=== PATIENT | male | born 1985 | race Caucasian/White ===

== ENCOUNTER 2021-03-25 08:14 | Emergency (ER) | payer OTHER, SELFPAY ==
[2021-03-25 08:33] VITALS: BP 133/97; PULSE 70; RESP 16; TEMP 36.9; O2SAT 99
--- NOTE | 2021-03-25 08:35 | ED.GENADULT ---
HPI - General Adult General Chief complaint: Upper Respiratory Infection Stated complaint: COUGH HEADACHE Source: patient Mode of arrival: ambulatory Limitations: no limitations History of Present Illness HPI narrative: Michael is a 35M with a PMH of tobacco abuse and COVID last month that presented to the ED with a runny nose, cough and headache. He has had these symptoms for 3 weeks. No fevers, chills, CP or SOB reported. Related Data Allergies Allergy/AdvReac Type Severity Reaction Status Date / Time No Known Allergies Allergy Verified 03/25/21 08:32 Review of Systems Constitutional: Constitutional: Reports no additional constitutional complaints Eyes: Eyes: Reports no additional eye complaints ENT: Reports as per HPI Cardiovascular: Cardiovascular: Reports no additional cardiovascular complaints Respiratory: Respiratory: Reports as per HPI Gastrointestinal: Gastrointestinal: Reports no additional gastrointestinal complaints Genitourinary: Genitourinary: Reports no additional male genitourinary complaints Musculoskeletal: Musculoskeletal: Reports no additional musculoskeletal complaints Integumentary/Breasts: Skin/Breast: Reports system reviewed and no additional complaints, except as docu Neurologic: Reports system reviewed and no additional complaints, except as documented Psychiatric: Psychiatric: Reports no additional psychiatric complaints Endocrine: Endocrine: Reports no additional endocrine complaints Hematologic/Lymphatic: Hematologic/Lymphatic: Reports no additional hematologic/lymphatic complaints Allergic/Immunologic: Allergic/Immunologic: Reports no additional allergic/immunologic complaints Exam Const: General: no acute distress and alert Orientation/consciousness: patient oriented x3 Limitations: No altered mental status HENMT: Head: normal to inspection Other: erythematous nasal turbinates, posterior oropharynx cobblestoning Eyes: Conjunctivae: conjunctivae normal Pupils: Equal, round and reactive pupils present Neck: Neck: normal visual inspection Chest: Chest palpation & inspection: normal inspection of the chest Resp: Effort & Inspection: normal respiratory effort Other: diffuse wheezing but good air movement Cardio: Rate: regular rate Rhythm: regular rhythm Urinary Catheter: Urinary Catheter: patent and draining Skin: General skin exam: normal color Rashes: no rashes Neuro: General: patient oriented x3 and moves all extremities Extrem: General: normal to inspection Psych: Appearance: grossly normal Mental Status: mental status grossly normal Thought content: Yes Normal thought content present Course Vital Signs Vital signs: Vital Signs Temperature 98.4 F 03/25/21 08:33 Pulse Rate 70 03/25/21 08:33 Respiratory Rate 16 03/25/21 08:33 Blood Pressure 133/97 H 10/27/21 08:33 Pulse Oximetry 99 03/25/21 08:33 Temperature 98.4 F 03/25/21 08:33 Pulse Rate 70 03/25/21 08:33 Respiratory Rate 16 03/25/21 08:33 Blood Pressure 133/97 H 03/25/21 08:33 Pulse Oximetry 99 03/25/21 08:33 Medical Decision Making Vital Signs Vital Signs: Vital Signs Temperature 98.4 F 03/25/21 08:33 Pulse Rate 70 03/25/21 08:33 Respiratory Rate 16 03/25/21 08:33 Blood Pressure 133/97 H 03/25/21 08:33 Pulse Oximetry 99 03/25/21 08:33 Temperature 98.4 F 03/25/21 08:33 Pulse Rate 70 03/25/21 08:33 Respiratory Rate 16 03/25/21 08:33 Blood Pressure 133/97 H 03/25/21 08:33 Pulse Oximetry 99 03/25/21 08:33 Discharge Plan Discharge Clinical Impression: Bronchitis, Allergies Patient Disposition: Home, Self-Care Condition: Stable Instructions: Acute Bronchitis (ED) Additional Instructions: Please return to the ED for any new concerning, or worsening symptoms. Prescriptions: New albuterol sulfate 90 mcg/actuation HFA aerosol inhaler 1 inh inhalation QID PRN (Reason: shortness of breath or wheezing
== END 2021-03-25 08:44 | disposition home or self-care (01) ==
PROVIDERS: Emergency Provider Family Medicine; PCP Internal Medicine
DX: J40 Bronchitis, not specified as acute or chronic (principal); T78.40XA Allergy, unspecified, initial encounter
CPT/HCPCS: 99283; 99284

== ENCOUNTER 2022-03-04 17:05 | Emergency (ER) | payer OTHER, SELFPAY ==
[2022-03-04 17:22] VITALS: BP 127/90; PULSE 74; RESP 16; TEMP 36.3; O2SAT 98
--- NOTE | 2022-03-04 17:48 | ED.GENADULT ---
HPI - General Adult General Chief complaint: Unspecified Stated complaint: Hemmoroid possible burst,fever,headaches Time Seen by Provider: 03/04/22 17:08 Source: patient Mode of arrival: ambulatory Limitations: no limitations History of Present Illness HPI narrative: this is a 36-year-old gentleman that presents with some bleeding from the rectum yesterday currently there is o bleeding, with no bleeding currently patient with no history of hemorrhoid. No other symptoms no fever chills no abdominal pain no rectal pain no history of anal fissures. Onset (ago): day(s) Location: buttocks ( rectal area) Severity: mild Severity scale (1-10): 1 Related Data Allergies Allergy/AdvReac Type Severity Reaction Status Date / Time No Known Allergies Allergy Verified 03/04/22 17:26 Review of Systems Review of Systems: All systems reviewed & are unremarkable except as noted in HPI and below PMFSH Past Medical History Medical History Patient denies medical problems Exam Const: General: cooperative, healthy appearing, comfortable, no acute distress and well developed HENMT: Head: normal to inspection Ears: hearing grossly normal bilaterally Face/Nose/Sinus: Normal external nose present Face and sinus: normal facial exam Mouth: Yes Normal oral and palatal mucosa present Eyes: General: appearance normal, both eyes and all related structures Periorbital: periorbital findings normal Eyelids: eyelids normal Conjunctivae: conjunctivae normal Sclera: sclerae normal EOM: EOMs intact bilaterally Neck: Neck: normal visual inspection, full ROM, no lymphadenopathy and no meningeal signs Chest: Chest palpation & inspection: normal inspection of the chest Resp: Effort & Inspection: normal respiratory effort and able to speak in complete sentences Cardio: Palpation: normal PMI Rate: regular rate Rhythm: regular rhythm GI: Inspection: normal to inspection Auscultation: normal bowel sounds Other: rectal exam performed shows that there was an internal hemorrhoid currently not bleeding flattened not sclerosed the 3 o'clock position. Back/Spine/Pelvis: Back: no CVA tenderness Skin: General skin exam: normal color and no rashes or lesions noted Neuro: General: oriented to person and oriented to place Extrem: General: normal to inspection and full ROM Psych: Appearance: grossly normal Mental Status: mental status grossly normal Course Course Emergency Course: Rectal exam performed which showed an internal hemorrhoid at approximately 3:00 a.m. position not bleeding currently. Vital Signs Vital signs: Vital Signs Temperature 36.3 C L 03/04/22 17:22 Pulse Rate 74 03/04/22 17:22 Respiratory Rate 16 03/04/22 17:22 Blood Pressure 127/90 03/04/22 17:22 Pulse Oximetry 98 03/04/22 17:22 Oxygen Delivery Room Air 03/04/22 17:22 Temperature 36.3 C L 03/04/22 17:22 Pulse Rate 74 03/04/22 17:22 Respiratory Rate 16 03/04/22 17:22 Blood Pressure 127/90 03/04/22 17:22 Pulse Oximetry 98 03/04/22 17:22 Oxygen Delivery Room Air 03/04/22 17:22 Medical Decision Making Vital Signs Vital Signs: Vital Signs Temperature 36.3 C L 03/04/22 17:22 Pulse Rate 74 03/04/22 17:22 Respiratory Rate 16 03/04/22 17:22 Blood Pressure 127/90 03/04/22 17:22 Pulse Oximetry 98 03/04/22 17:22 Oxygen Delivery Room Air 03/04/22 17:22 Temperature 36.3 C L 03/04/22 17:22 Pulse Rate 74 03/04/22 17:22 Respiratory Rate 16 03/04/22 17:22 Blood Pressure 127/90 03/04/22 17:22 Pulse Oximetry 98 03/04/22 17:22 Oxygen Delivery Room Air 03/04/22 17:22 Critical Care Time Critical Care Time Critical Care Time: No Discharge Plan Discharge Clinical Impression: Hemorrhoids, internal Patient Disposition: Home, Self-Care Condition: Stable Instructions: Antibiotic Form, Hemorrhoids (ED) Additional Instructio
[2022-03-04 18:06] VITALS: BP 127/90; PULSE 74; RESP 16; TEMP 36.3; O2SAT 98
== END 2022-03-04 18:13 | disposition home or self-care (01) ==
PROVIDERS: Emergency Provider Emergency Medicine; PCP Internal Medicine
DX: K64.8 Other hemorrhoids (principal)
CPT/HCPCS: 99283

== ENCOUNTER 2022-12-23 17:31 | Emergency (ER) | payer OTHER, SELFPAY ==
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
--- NOTE | ~2022-12-23 | XR_ITS ---
XR forearm LT 2V 12/23/2022 19:01 Indication: Left arm pain Procedure: 3 views left forearm Comparison: No prior studies for comparison. Findings: No acute fracture or traumatic malalignment. There is a side plate and screws transfixing t he proximal radius. No focal soft tissue abnormality. No foreign bodies. Impression: 1: No acute fracture. Reviewed, dictated and finalized at location A. Impression: 1: No acute fracture.
--- NOTE | ~2022-12-23 | CT_ITS ---
EXAMINATION: CT BRAIN W/O DATE: 12/23/2022 19:09 INDICATION: Head injury. TECHNIQUE: Computed tomography (CT) of the head was performed without intravenous contrast. The dose- length product was 605.33 mGy-cm. Automated exposure control and iterative reconstruction technique w ere employed. COMPARISON: No prior studies for comparison. FINDINGS: Normal brain parenchymal volume for age. Normal sy-white differentiation. No acute intrac ranial hemorrhage, infarction, mass or mass effect. No ventriculomegaly or midline shift. Midline sagittal images demonstrate a normal corpus callosum, c raniovertebral junction and sella turcica. Basilar cisterns are patent. Small mucous retention cysts of the right maxillary and sphenoid sinuses. Mastoids are pneumatized. N o depressed skull fractures. IMPRESSION: 1. No acute intracranial abnormality. Reviewed, dictated and finalized at location A.
[2022-12-23 17:58] VITALS: BP 129/80; PULSE 106; RESP 16; TEMP 36.8; O2SAT 98
[2022-12-23] MEDS: ACETAMINOPHEN 500 MG TABLET 1000 MG PO (19:24)
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
[2022-12-23 20:17] VITALS: BP 132/88; PULSE 87; O2SAT 98
== END 2022-12-23 20:18 | disposition home or self-care (01) ==
PROVIDERS: Emergency Provider Physician Assistant
DX: S01.21XA Laceration without foreign body of nose, initial encounter (principal); S02.2XXA Fracture of nasal bones, initial encounter for closed fracture; Y04.0XXA Assault by unarmed brawl or fight, initial encounter
CPT/HCPCS: 12011; 70450; 70486; 72125; 73090; 99284; A9270